=== PATIENT | male | born 1960 | race Caucasian/White ===

== ENCOUNTER 2022-01-05 06:55 | Emergency (ER) | payer MEDICAID ==
[~2022-01-05] VITALS: Ht 185.4 cm; Wt 95.3 kg
[~2022-01-05 06:55] MED LIST: AMLO-213 PO; TRIA0.252 PO
--- NOTE | 2022-01-05 07:12 | NUR ---
BIBS. L LOWER RIB PAIN S/P FELL ON HIS FAN. VITALS ARE WITHIN NORMAL LIMITS, BREATHING EVEN AND UNLABORED.
[2022-01-05] MEDS ORDERED: IBUPROFEN 600 MG TABLET PO ONE (07:30)
[2022-01-05] MEDS ORDERED: HYDROCODONE/APAP 5/325MG TABLET PO ONE (07:30)
[2022-01-05] MEDS ORDERED: HYDROCODONE/APAP 5/325MG TABLET ONE (07:45)
[2022-01-05] MEDS ORDERED: IBUPROFEN 600 MG TABLET ONE (07:46)
--- NOTE | 2022-01-05 08:08 | NUR ---
X RAY AT BEDSIDE
[2022-01-05] MEDS ORDERED: IBUP-1957 PO (08:41)
[2022-01-05 09:16] VITALS: BP 132/84
--- NOTE | 2022-01-05 09:16 | NUR ---
Patient discharged to home in stable condition. Written and verbal after care instructions given. Patient verbalizes understanding of instruction.
== END 2022-01-05 09:17 | disposition home or self-care (01) ==
LOC: ER 06:55
DX: S20.212A Contusion of left front wall of thorax, initial encounter (principal); S21.1 Open wound of front wall of thorax without penetration into thoracic cavity; S31.139S Puncture wound of abdominal wall without foreign body, unspecified quadrant without penetration into peritoneal cavity, sequela; I10 Essential (primary) hypertension; J43.9 Emphysema, unspecified; E10.8 Type 1 diabetes mellitus with unspecified complications; M19.90 Unspecified osteoarthritis, unspecified site; F20.9 Schizophrenia, unspecified; F31.9 Bipolar disorder, unspecified; F17.200 Nicotine dependence, unspecified, uncomplicated; Z79.899 Other long term (current) drug therapy; Z60.2 Problems related to living alone; W20.8XXA Other cause of strike by thrown, projected or falling object, initial encounter; Y93.89 Activity, other specified; Y92.89 Other specified places as the place of occurrence of the external cause; Y99.8 Other external cause status
CPT/HCPCS: 71100-TC